=== PATIENT | male | born 1950 | race Caucasian/White ===

== ENCOUNTER 2016-08-28 18:16 | Observation (INO) | payer MEDICARE, OTHER ==
[2016-08-28] MEDS ORDERED: ASPIRIN TABLET 325 MG TAB PO ONE (18:36)
[2016-08-28] MEDS ORDERED: SODIUM CHLORIDE 0.9% (FLUSH) 10 ML SYG IV PRN (18:36)
[2016-08-28] MEDS: NITROGLYCERIN 0.4 MG 25 EA TAB SL ONE ×3 (18:39→20:00)
--- NOTE | 2016-08-28 18:54 | ED.PDOC ---
History of Present Illness - General Source: patient, family Exam Limitations: clinical condition Additional Information: PT REPORTS TO THE ED WITH COMPLAINT OF MID STERNAL NON RADIATING CHEST PAIN DESCRIBED PRESSURE THAT BEGAN THIS MORNING AND HAS BEEN CONSTANT. AT BEDSIDE STATES THAT PT HAS HAD A PRODUCTIVE COUGH FOR THE PAST FEW DAYS BUT DENIES FEVER. PT IS A 1.5PACK PER DAY SMOKER AND USES O2 AT HOME WHEN NEEDED. PT REPORTS DOING A FEW NEB TREATMENTS TODAY BUT STATES HE DID NOT USE HIS OXYGEN AND WAS ABLE TO SMOKE TODAY. PT RATES PAIN AT 6/10. - History of Present Illness Timing/Duration: 24 hours Severity/Quality: moderate, pressure Location: substernal Chest Pain Radiation: no radiation Activities at Onset: none Prior Chest Pain/Cardiac Workup: no prior chest pain Improving Factors: nothing Worsening Factors: nothing Nitro Today/Relief: no nitro taken today Aspirin Treatment Today: 81 mg x 1 Associated Symptoms: shortness of breath - COUGH <Mayela Prieto - Last Filed: 08/28/16 18:58> <Jazlyn Sy - Last Filed: 08/28/16 23:41> - General Chief Complaint: Chest Pain/CO Stated Complaint: chest pain Time Seen by Provider: 08/28/16 18:36 - History of Present Illness Allergies/Adverse Reactions: Allergies NO KNOWN ALLERGY Allergy (Verified 05/27/16 17:03) Home Medications: Ambulatory Orders Gabapentin 300 mg PO TID 01/28/14 Omeprazole 40 mg PO BID 01/28/14 Losartan Potassium 50 mg PO DAILY #20 tab 05/27/16 Albuterol Sulfate [Proair Hfa] 108 mcg IN Q4H PRN 05/30/16 Azithromycin Tab [Zithromax Tab] 250 mg PO Q24H #4 tab 05/30/16 Folic Acid 1 mg PO DAILY 05/30/16 Ipratropium-Albuterol [Combivent Respimat 20-100 Mcg/Act] 1 aer IN Q4HR PRN 10/10 Ipratropium/Albuterol [Duoneb] 3 ml NEB QID 05/30/16 Sucralfate Tab [Carafate Tab] 1 gm PO ACHS #40 tab 05/30/16 amLODIPine BESYLATE [Norvasc] 5 mg PO BEDTIME 05/30/16 predniSONE [Prednisone] 10 mg PO DAILY #12 tab 05/30/16 Review of Systems - Review of Systems Constitutional: Denies: chills, fever EENTM: Denies: nose congestion, throat pain Respiratory: States: see HPI, cough, short of breath Cardiology: States: see HPI, chest pain. Denies: palpitations Gastrointestinal/Abdominal: Denies: abdominal pain, diarrhea, vomiting Musculoskeletal: Denies: back pain, joint pain Skin: Denies: change in color, rash Neurological: States: no symptoms reported Endocrine: States: no symptoms reported Hematologic/Lymphatic: States: no symptoms reported <ConnerRadhaluca Gideon - Last Filed: 08/28/16 18:58> Past Medical History (General) - Patient Medical History Hx Seizures: No Hx Stroke: No Hx Dementia: No Hx Asthma: No Hx of COPD: Yes Hx Cardiac Disorders: No Hx Congestive Heart Failure: No Hx Pacemaker: No Hx Hypertension: Yes Hx Thyroid Disease: No Hx Diabetes: No Hx Gastroesophageal Reflux: No Hx Renal Disease: No Hx Cancer: No Hx of HIV: No Hx Hepatitis C: No Hx MRSA: No Surgical History: no surgical history - Vaccination History Hx Tetanus, Diphtheria Vaccination: Yes Hx Influenza Vaccination: Yes Hx Pneumococcal Vaccination: Yes - Social History Hx Tobacco Use: Yes Hx Chewing Tobacco Use: No Hx Alcohol Use: Yes Hx Substance Use: No Hx Substance Use Treatment: No Hx Depression: No Hx Physical Abuse: No Hx Emotional Abuse: No Hx Suspected Abuse: No - Female History Patient : No <ConnerMayela - Last Filed: 08/28/16 18:58> Family Medical History - Family History Mother Age (years): 84 Living Status: Still Living Hx Family;Other: in and out on SNF Father Living Status: Age at (years of age): 87 Hx Family;Other: depression/suicide <ConnerZackarykristal Gideon - Last Filed: 08/28/16 18:58> Physical Exam - Physical Exam General Appearance: Alert, Obvious distress Eyes, Ears, Nose, Throat Exam: normal ENT inspection Respiratory: chest non-tender, lungs clear, decreased breath sounds Cardiovascular/Chest: no murmur, tachycardia Gastrointestinal/Abdominal: non tender, soft Extremity: normal range of motion, non-tender Neurologic: normal mood/affect, oriented x 3 Skin Exam: normal color, warm/dry <ConnerZackarykristal Gideon - Last Filed: 08/28/16 18:58> Progress - EKG/XRAY/CT EKG: Sinus, Tachy, Unchanged from - 05/27/16 Comments: @130BPM, NL INTERVALS, NL AXIS <Mayela Prieto - Last Filed: 08/28/16 18:58> - Progress Progress: 08/28/16 23:34 Patient continued having epigastric pain off and on throughout his ED stay. The pain was relieved with a GI cocktail, however it would return any time he had a coughing fit. His continued having tachycardia, however Metoprolol 5 mg was given and he heart rate and blood pressure normalized. He continued to have coughing spells--productive with clear sputum. It was decided to observe Patient. - Results/Orders Results/Orders: 08/28/16 08/28/16 08/28/16 18:31 18:36 19:31 Temperature 97.1 F L Pulse Rate Pulse Rate [ 140 H 119 H Right Brachial] Respiratory 24 24 22 Rate Blood Pressure 154/66 147/93 [Right Arm] O2 Sat by Pulse 96 92 L Oximetry 08/28/16 08/28/16 08/28/16 20:31 21:26 21:28 Temperature Pulse Rate Pulse Rate [ 148 H 149 H Right Brachial] Respiratory 22 22 Rate Blood Pressure 156/101 130/100 [Right Arm] O2 Sat by Pulse 92 L 91 L 90 L Oximetry 08/28/16 08/28/16 08/28/16 21:29 22:30 23:15 Temperature 97.8 F Pulse Rate 131 H 131 H 98 H Pulse Rate [ 126 H 98 H Right Brachial] Respiratory 24 22 22 Rate Blood Pressure 148/86 136/84 [Right Arm] O2 Sat by Pulse 94 L 94 L 91 L Oximetry 08/28/16 18:36 Telemetry .ONCE Sodium Chloride 0.9% (Flush) [Saline Flush Syringe] 10 ml IV PRN PRN EKG Stat Pulse Ox Stat 08/28/16 21:07 SVN/Updraft Therapy .PRN 08/28/16 21:20 Hold Metformin x 48Hrs [id number] Laboratory Results WBC 4.4 K/mm3 (4.8-10.8) L 08/28/16 18:25 RBC 5.88 M/mm3 (4.70-6.10) 08/28/16 18:25 Hgb 19.2 gm/dL (14.0-18.0) H 08/28/16 18:25 Hct 56.8 % (42.0-52.0) H 08/28/16 18:25 MCV 96.5 fl (80.0-94.0) H 08/28/16 18:25 MCH 32.6 pg (27.0-31.0) H 08/28/16 18:25 MCHC 33.8 g/dL (33.0-37.0) 08/28/16 18:25 RDW 17.0 % (11.5-14.5) H 08/28/16 18:25 Plt Count 140 K/mm3 (130-400) 08/28/16 18:25 MPV 8.2 fl (7.40-10.4) 08/28/16 18:25 Absolute Neuts (auto) 2.70 K/uL (1.8-6.8) 08/28/16 18:25 Absolute Lymphs (auto) 1.00 K/uL (1.0-3.4) 08/28/16 18:25 Absolute Monos (auto) 0.60 K/uL (0.2-0.8) 08/28/16 18:25 Absolute Eos (auto) 0.10 K/uL (0.0-0.4) 08/28/16 18:25 Absolute Basos (auto) 0.10 K/uL (0.0-0.1) 08/28/16 18:25 Neutrophils % 61.9 % (42.0-78.0) 08/28/16 18:25 Lymphocytes % 22.5 % (20.0-50.0) 08/28/16 18:25 Monocytes % 12.4 % (2.0-9.0) H 08/28/16 18:25 Eosinophils % 2.1 % (1.0-5.0) 08/28/16 18:25 Basophils % 1.1 % (0.0-2.0) 08/28/16 18:25 PT 10.6 SECONDS (9.4-12.5) 08/28/16 18:25 INR 0.940 08/28/16 18:25 PTT (SP) 32.0 SECONDS (25.1-36.5) 08/28/16 18:25 D-Dimer, Quantitative 276 ng/mL (0-230) H* 08/28/16 20:35 Sodium 128 mmol/L (135-145) L 08/28/16 21:00 Potassium 3.7 mmol/L (3.6-5.0) 08/28/16 21:00 Chloride 93 mmol/L (101-111) L 08/28/16 21:00 Carbon Dioxide 31 mmol/L (21-31) 08/28/16 21:00 Anion Gap 7.7 (12-18) L 08/28/16 21:00 BUN < 5 mg/dL (7-18) L 08/28/16 21:00 Creatinine 0.71 mg/dL (0.6-1.3) 08/28/16 21:00 BUN/Creatinine Ratio 7.0 (10-20) L 08/28/16 21:00 Random Glucose 115 mg/dL (70-105) H 08/28/16 21:00 Serum Osmolality 254.9 mOsm/L (275-295) L* 08/28/16 21:00 Calcium 8.6 mg/dL (8.4-10.2) 08/28/16 21:00 Magnesium 1.7 mg/dL (1.8-2.5) L 08/28/16 18:25 Total Bilirubin 0.9 mg/dL (0.2-1.0) 08/28/16 18:25 Direct Bilirubin 0.3 mg/dL (0-0.2) H 08/28/16 18:25 Indirect Bilirubin 0.6 mg/dL (0.2-0.8) 08/28/16 18:25 AST 39 IU/L (10-42) 08/28/16 18:25 ALT 21 IU/L (10-60) 08/28/16 18:25 Alkaline Phosphatase 126 IU/L (42-121) H 08/28/16 18:25 Creatine Kinase 42 IU/L (38-174) 08/28/16 18:25 CK-MB (CK-2) 2.8 ng/mL (0.0-4.4) 08/28/16 18:25 CK-MB (CK-2) % Not Reportable 08/28/16 18:25 Troponin I < 0.02 ng/mL (0.01-0.05) 08/28/16 18:25 B-Natriuretic Peptide 16.8 pg/ml (0-100) 08/28/16 18:25 Serum Total Protein 7.3 gm/dL (6.4-8.2) 08/28/16 18:25 Albumin 3.3 g/dl (3.2-5.5) 08/28/16 18:25 <Jazlyn Sy - Last Filed: 08/28/16 23:41> Departure <Mayela Prieto - Last Filed: 08/28/16 18:58> - Departure Time of Disposition: 23:41 <Jazlyn Sy - Last Filed: 08/28/16 23:41> - Departure Clinical Impression: COPD exacerbation, Tachycardia with hypertension, Polycythemia secondary to smoking, Hyponatremia Gastroesophageal reflux disease Qualifiers: Esophagitis presence: esophagitis presence not specified Qualifier Code: (K21.9 ) Gastro-esophageal reflux disease without esophagitis Disposition: Admit Patient Condition: Good Home Medications: Ambulatory Orders Gabapentin 300 mg PO TID 01/28/14 Omeprazole 40 mg PO BID 01/28/14 Losartan Potassium 50 mg PO DAILY #20 tab 05/27/16 Albuterol Sulfate [Proair Hfa] 108 mcg IN Q4H PRN 05/30/16 Azithromycin Tab [Zithromax Tab] 250 mg PO Q24H #4 tab 05/30/16 Folic Acid 1 mg PO DAILY 05/30/16 Ipratropium-Albuterol [Combivent Respimat 20-100 Mcg/Act] 1 aer IN Q4HR PRN 10/10 Ipratropium/Albuterol [Duoneb] 3 ml NEB QID 05/30/16 Sucralfate Tab [Carafate Tab] 1 gm PO ACHS #40 tab 05/30/16 amLODIPine BESYLATE [Norvasc] 5 mg PO BEDTIME 05/30/16 predniSONE [Prednisone] 10 mg PO DAILY #12 tab 05/30/16 Decision To Admit - Decistion To Admit Decision to Admit Reason: Admit from ER - Accepted by Dr. Tate Decision to Admit Date: 08/28/16 Decision to Admit Time: 23:32 <Jazlyn Sy - Last Filed: 08/28/16 23:41>
--- NOTE | 2016-08-28 19:38 | RAD ---
EXAM: Chest,1 View CLINICAL INDICATION: 65-year-old male with shortness of breath, intercostal chest pain and cough. COMPARISON: 05/30/2016. FINDINGS: Single view, AP portable chest was obtained. Stable cardiac and mediastinal silhouette. Heart size is normal. Tortuous atherosclerotic thoracic aorta.Lungs are clear without focal opacity, pneumothorax or pleural effusions. LEFT basilar linear hazy opacities may be secondary to subsegmental atelectasis, scarring. The visualized bones are within normal limits. IMPRESSION: No acute cardiopulmonary abnormalities. 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
[2016-08-28] MEDS ORDERED: LIDOCAINE VIS-MYLANTA 30 ML UD PO ONE (20:34)
[2016-08-28] MEDS ORDERED: IPRATROPIUM/ALBUTEROL 3 ML VIAL NEB ONE (21:07)
[2016-08-28] MEDS ORDERED: METOPROLOL TARTRATE INJ 5 MG/5 ML VIAL IV ONE (22:32)
[2016-08-28] MEDS ORDERED: methylPREDNISolone SODIUM SUC 125 MG/2 ML VIAL IV ONE (23:32)
[2016-08-28] MEDS ORDERED: BENZONATATE PERLES 100 MG CAP PO ONE (23:42)
[2016-08-29] MEDS ORDERED: SODIUM CHLORIDE 0.9% (FLUSH) 10 ML SYG IV PRN (00:05)
[2016-08-29] MEDS ORDERED: HYDROcodone 5MG/APAP 325MG 1 EA TAB PO PRN (00:10)
[2016-08-29] MEDS ORDERED: MAGNESIUM HYDROXIDE 30 ML UD PO PRN (00:10)
[2016-08-29] MEDS ORDERED: LEVALBUTEROL NEBS 1.25 MG/3 ML VIAL INH PRN (00:10)
[2016-08-29] MEDS ORDERED: FUROSEMIDE INJ 20 MG/2 ML VIAL IV ONE (00:17)
[2016-08-29] MEDS ORDERED: BENZONATATE PERLES 100 MG CAP PO PRN (00:20)
[2016-08-29] MEDS ORDERED: KCL 20 MEQ/NS 1,000 ML IVS PRN (00:23)
--- NOTE | 2016-08-29 00:27 | PCM.CORE ---
Physician DVT/VTE - 3-4 High Risk Treatments: Sequential Compression Device Pharmacological: Enoxaparin 40 mg SQ Daily
[2016-08-29] MEDS ORDERED: IV SET AND CAP CHANGE INJ INJ SCH (00:30)
[2016-08-29] MEDS ORDERED: ENOXAPARIN SODIUM 40 MG/0.4 ML SYG SUBCU SCH (00:30)
[2016-08-29] MEDS: IPRATROPIUM/ALBUTEROL 3 ML VIAL INH SCH ×2 (00:39→07:48)
[2016-08-29] MEDS: guaiFENesin ER TAB 600 MG TAB PO SCH ×2 (00:49→09:35)
[2016-08-29] MEDS: METOPROLOL TARTRATE 25 MG TAB PO SCH ×2 (00:49→08:11)
[2016-08-29] MEDS ORDERED: OMEPRAZOLE CAP 20 MG CAP PO SCH (06:30)
[2016-08-29 06:47] VITALS: BP 150/85; TEMP 97.8
[2016-08-29] MEDS ORDERED: SUCRALFATE 1 GM/10 ML 1 GM UD PO SCH (07:00)
[2016-08-29] MEDS ORDERED: SODIUM CHLORIDE 0.9% 10 ML VIAL IV PRN (07:36)
[2016-08-29] MEDS ORDERED: predniSONE 20 MG TAB PO SCH (09:00)
[2016-08-29] MEDS ORDERED: GABAPENTIN 300 MG CAP PO SCH (09:00)
[2016-08-29] MEDS ORDERED: FUROSEMIDE INJ 20 MG/2 ML VIAL IV SCH (09:00)
[2016-08-29] MEDS ORDERED: LOSARTAN POTASSIUM 25 MG TAB PO SCH (09:00)
[2016-08-29 10:17] VITALS: O2SAT 91
--- NOTE | 2016-08-29 10:21 | SSS ---
DATE OF ADMISSION: 08/28/16 DATE OF DISCHARGE: 08/29/16 DISCHARGE DIAGNOSIS: 1. Chronic obstructive pulmonary disease with an acute exacerbation requiring bronchodilators and pulmonary hygiene with a short course of corticosteroid administration initiated. 2. Significant hyponatremia with probable etiology of polydipsia with free water overload, treated with fluid restrictions, gentle loop diuresis. 3. Tachycardia, improved. 4. Hypertension. 5 Symptomatic gastroesophageal reflux disease with esophagitis. 6. Chest pain with no evidence of underlying ischemic coronary disease noted, yet probably symptomatic from clinically evident regurgitation with distal esophagitis. HISTORY OF PRESENT ILLNESS: This 65-year-old, white male was admitted to the hospital for overnight observation because of persistent ongoing shortness of breath, cough, chest pain especially in the epigastric and lower anterior chest region. Chest discomfort started earlier in the morning of the day of admission. On the initial Emergency Room evaluation, cardiac enzymes were within normal limits, but he was found to have a fairly significant tachycardia presentation and was observed overnight with serial EKGs to ensure no underlying ischemic coronary disease contributing to some of his symptoms. He also has significant regurgitation with food from his stomach regurgitating and being spit out of his mouth. No evidence of aspiration otherwise evident. He has had chronic emphysema which leaves him with significant exertional dyspnea. He refuses to have an ambulation study to check for the degree of desaturation , but this will be followed up in the clinic. He is a chronic smoker, encouraged to stop and he states he actually wishes to stop at this time and specific instructions, advice, and support is to continue in him achieving that goal. PAST MEDICAL HISTORY: 1. Emphysema. 2. Hypertension. 3. Peripheral neuropathy, symptomatic. 4. Gastroesophageal reflux disease. PAST SURGICAL HISTORY: None. CURRENT MEDICATIONS: Please referring to nursing list of verified medications. ALLERGIES: NONE KNOWN. FAMILY HISTORY: Positive for hypertension, diabetes, skin cancer. SOCIAL HISTORY: The patient has worked in the [employer]. He has a significant history of smoking with over 70+ pack year history of smoking and still smoking though at a much lower rate now with his increasing respiratory distress. REVIEW OF SYSTEMS: GENERAL: Weight has been stable. No fever or chills. HEENT: No hearing or visual disturbances. LUNGS: Significant shortness of breath especially upon exertion with coughing, no hemoptysis. Secretions are not a significant problem. CARDIOVASCULAR: Chest discomfort, especially in the epigastric and lower substernal region with burning sensation. No significant palpitations, but rapid pulse is evident. GASTROINTESTINAL: Appetite has been decreased recently and he seems to be losing some of his muscle mass. No blood in the stools noted. GENITOURINARY: No dysuria. EXTREMITIES: Good range of motion. NEUROLOGIC: No headaches or focal weakness. PHYSICAL EXAMINATION: VITAL SIGNS: Afebrile. Initial pulse was 149, decreasing with the use of a beta blockade into the 80s and 90s. Blood pressure 144/84. Pulse oximetry 88% on room air and was up to 92% on room air at the time he was leaving. Weight 67 kg. GENERAL: The patient is fairly alert, though noticeably anxious. During his hospital stay, he was cooperative except some studies he would prefer not to do. He was very anxious and insistent upon being discharged early on the morning of discharge, even before some of the results of the studies had been fully received. Family is present. HEENT: Unremarkable. LUNGS: Diminished breath sounds with a few rhonchi, more prominent on the left versus the right base. CARDIOVASCULAR: Heart tones are somewhat distant and seem to be slower as the beta blockade has assisted. ABDOMEN: Generally soft with no organomegaly, masses, but he does have some mild epigastric tenderness upon palpation. EXTREMITIES: Somewhat diminished muscle tone. Encouraged to increase activity level. NEUROLOGIC: No focal weakness. The patient is otherwise awake, alert and oriented. LABORATORY: White count 4,400, hemoglobin elevated at 19.2 with hematocrit 56.8 , suggesting a polycythemia, probably secondary to chronic smoking which would probably present even at a more concentrated level if he does not have also clinical evidence of polydipsia with resultant low specific gravity. INR 0.94, D-dimer 276. Chemistries show sodium 128 up to 129 at discharge. Potassium up to 4.1, BUN under 5, creatinine 0.6, glucose 130, serum osmolality up from 153 to 158 at time of discharge. This resulted from fluid restrictions and gentle diuresis with a loop diuretic. Cardiac enzymes were followed. Troponin was 0. TSH 1. Urinalysis generally clean. Sputum culture is pending. Chest CTA was performed and showed no evidence of pulmonary emboli, but chronic obstructive pulmonary disease was evident. HOSPITAL COURSE: The patient was feeling much improved on the morning of discharge. Pulse was slower and he was able to ambulate with improved fashion. Still will require special antireflux instructions and again encouraged to stop all smoking. He will have close followup in the clinic. PLAN: The patient is discharged home today with followup with Dr. Dutton in one week. Dr. Dutton will be helpful in repeating laboratory studies to follow the polycythemia as well as the hyponatremia. To drink adequate fluids, yet avoid too much, and to keep oral intake under 1800 mL per 24 hours. Sleep with the head of the bed slightly elevated. Try to go to bed on an empty stomach. Try Carafate to coat the esophagus. Stop all smoking most important. When traveling, take a copy of the EKG miniaturized in his billfold if medical attention is needed. Return if not improving. #[id number] [facility] CENTERAri
--- NOTE | 2016-09-22 23:50 | RAD ---
EXAM: Chest,1 View CLINICAL INDICATION: 65-year-old male with shortness of breath, intercostal chest pain and cough. COMPARISON: 05/30/2016. FINDINGS: Single view, AP portable chest was obtained. Stable cardiac and mediastinal silhouette. Heart size is normal. Tortuous atherosclerotic thoracic aorta.Lungs are clear without focal opacity, pneumothorax or pleural effusions. LEFT basilar linear hazy opacities may be secondary to subsegmental atelectasis, scarring. The visualized bones are within normal limits. IMPRESSION: No acute cardiopulmonary abnormalities. 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
--- NOTE | 2016-09-23 07:31 | CT ---
NAME: TAVO KIMPROCEDURE: CT CHEST ANGIOGRAPHY WITH IV CONTRASTORDER DATE: 08/28/2016 9:19 PM CSTACCESSION NUMBER: [id number] Clinical History: Cough/SOB/tachy Indication: Same as above Comparison: None Technique: CT of the chest was done with intravenous contrast followed by CT angiography of the pulmonary arteries. Coronal, Sagittal and 3D volumetric MIP reconstructions were generated from the acquired data. The patient was injected with contrast intravenously, without any documented immediate adverse reactions. Total DLP: 547.86 mGy*cm. Findings: There is no visualization of filling defects in the main pulmonary trunk, main right and left pulmonary arteries or their lower order branches to suggest pulmonary embolism. The bilateral main pulmonary arteries are normal in caliber. There is no evidence of interventricular septal deviation or filling defects in the cardiac chambers. There are no pneumothoraces or pleural effusions. There are underlying changes of COPD and presence of mild infiltrates/atelectasis/parenchymal scarring in the left lower lobe and the costophrenic recess The trachea, bilateral mainstem bronchi and the bilateral main segmental bronchi are patent without any intraluminal mass lesions. There is no gross evidence of clinically significant thoracic aortic aneurysm or thoracic aortic dissection. Atherosclerotic calcifications are noted in the thoracic aorta There is no clinically significant pericardial effusion. There are no pathologically enlarged lymph nodes in the mediastinum, bilateral hilar, bilateral supraclavicular or the bilateral axillary regions. The thoracic bony rib cage appears grossly unremarkable. The visualized thoracic spine shows underlying degenerative change. There is presence of a punctate nonobstructive calculus in the visualized upper pole of the left kidney and fatty metamorphosis of the liver. There is a small hiatal hernia Impression: There is no pulmonary embolism. There are underlying changes of COPD and presence of mild infiltrates/atelectasis/parenchymal scarring in the left lower lobe and the costophrenic recess There is presence of a punctate nonobstructive calculus in the visualized upper pole of the left kidney and fatty metamorphosis of the liver. There is a small hiatal hernia Location of Interpretation: Teleradiology Electronically signed by: Tigre Dewey MD 08/28/2016 10:07 PM DIRECT RESPONSE CONSULTANT
== END 2016-08-29 09:45 | disposition home or self-care (01) ==
LOC: ER 18:16 → MS 23:42
PROVIDERS: ADMIT Emergency Medicine; ATTEND Emergency Medicine
DX: J44.1 Chronic obstructive pulmonary disease with (acute) exacerbation (principal); R06.02 Shortness of breath; E87.1 Hypo-osmolality and hyponatremia; R00.0 Tachycardia, unspecified; I10 Essential (primary) hypertension; K21.0 Gastro-esophageal reflux disease with esophagitis; R07.89 Other chest pain; G62.9 Polyneuropathy, unspecified; F17.210 Nicotine dependence, cigarettes, uncomplicated; Z79.51 Long term (current) use of inhaled steroids; Z79.899 Other long term (current) drug therapy; Z82.49 Family history of ischemic heart disease and other diseases of the circulatory system; Z83.3 Family history of diabetes mellitus; Z80.8 Family history of malignant neoplasm of other organs or systems
CPT/HCPCS: 36415 ×3; 71010; 71275; 80048 ×3; 80076; 81001; 82550 ×2; 82553 ×2; 83880; 84443; 84484 ×2; 85025; 85379; 85610; 85730; 87070; 87077; 87186; 93005 ×2; 94640 ×3; 94760 ×3; 96372; 96374; 96375 ×2; 99284; 99406; G0378; J1650; J1940; J2930; J3480; J7512; J7620 ×3

== ENCOUNTER → 2016-09-06 | Outpatient (CLI) | payer MEDICARE, OTHER | END | disposition home or self-care (01) | LOC: GMAM 14:06 | PROVIDERS: ATTEND Family Medicine | DX: R10.13 Epigastric pain (principal); E87.1 Hypo-osmolality and hyponatremia ==

== ENCOUNTER → 2016-09-09 | Outpatient (CLI) | payer MEDICARE, OTHER ==
--- NOTE | 2016-09-09 12:35 | US ---
EXAM DESCRIPTION: Gallbladder ultrasound. CLINICAL HISTORY: Acute onset of epigastric abdominal pain COMPARISON: None. TECHNIQUE: Transabdominal sonography was performed by an cardiac cath lab radiology technologist. FINDINGS: Liver: Echogenicity suggests fatty infiltration and/or chronic hepatocellular disease. Biliary: Several gallstones are present. There is no gallbladder wall thickening or sonographic Saleh sign to suggest acute cholecystitis. There is no biliary duct dilation. Mid common bile duct measures 6 mm in diameter. IMPRESSION The findings above are compatible with cholelithiasis, but no cholecystitis with a negative sonographic Saleh's sign. Echogenic liver which can be seen in setting of hepatocellular disease or fatty infiltration of the liver. Electronically signed by: Fredo Howell MD 09/09/2016 12:33
== END | disposition home or self-care (01) ==
LOC: US 10:46
PROVIDERS: ATTEND Family Medicine
DX: R10.13 Epigastric pain (principal)

== ENCOUNTER → 2016-09-23 | Outpatient (CLI) | payer MEDICARE, OTHER | END | disposition home or self-care (01) | LOC: GMAM 14:12 | PROVIDERS: ATTEND Family Medicine | DX: J44.9 Chronic obstructive pulmonary disease, unspecified (principal); E83.42 Hypomagnesemia ==

== ENCOUNTER → 2016-09-24 | Outpatient (CLI) | payer MEDICARE, OTHER | LOC: GMAM 18:10 | PROVIDERS: ATTEND Family Medicine | DX: R19.7 Diarrhea, unspecified (principal) ==

== ENCOUNTER → 2016-10-02 | Outpatient (CLI) | payer MEDICARE, OTHER | END | disposition home or self-care (01) | LOC: GMAM 14:25 | PROVIDERS: ATTEND Family Medicine | DX: E87.1 Hypo-osmolality and hyponatremia (principal) ==

== ENCOUNTER 2016-12-11 19:46 | Emergency (ER) | payer MEDICARE ==
[2016-12-11] MEDS ORDERED: LIDOCAINE VIS-MYLANTA 30 ML UD PO ONE (20:44)
[2016-12-11] MEDS ORDERED: KCL 40 MEQ/WATER FOR INJECTION 40 MEQ in PREMIX BAG 1 BAG IVPB ONE (20:45)
[2016-12-11] MEDS ORDERED: NITROGLYCERIN 2% 1 GM UD TOP ONE (20:45)
--- NOTE | 2016-12-11 20:52 | RAD ---
EXAM DESCRIPTION: Chest,2 Views CLINICAL HISTORY: 66 years Male chest pain COMPARISON: 08/28/2016. FINDINGS: The cardiomediastinal silhouette appears unremarkable. Atherosclerotic calcifications in the thoracic aorta. Hyperexpanded lungs. Mild scarring/atelectasis at the left lung base which appears improved in comparison to the previous study. No consolidating infiltrates or pleural effusions. No pneumothorax. IMPRESSION: No acute abnormality is identified. COPD. Electronically signed by: Zacarias Clark MD 12/11/2016 8:52 PM CDT
[2016-12-11] MEDS ORDERED: KCL 40 MEQ/WATER FOR INJECTION 100 ML IVPB ONE (20:54)
[2016-12-11] MEDS ORDERED: SODIUM CHLORIDE 0.9% 100ML 0 ML IVPB ONE (21:21)
--- NOTE | 2016-12-11 21:49 | ED.PDOC ---
History of Present Illness - General Chief Complaint: GI Problem Stated Complaint: throat pain and epigastric heart burn Time Seen by Provider: 12/11/16 20:04 Source: patient Exam Limitations: no limitations - History of Present Illness Initial Comments: Patient presents with midsternal pain for most of the day. He says it is constant, cramping, and non-radiating. He has had similar episodes before. He is currently being treated with diflucan for candidial esophagitis and omeprazole for GERD. NO cardiac history. Smokes tobacco and has dyslipidemia. Denies first degree family members with cardiac issues. Denies hx of bipedal edema, Denies hx of DM. Onset of pain was rapid. It is worsened by swallowing. No other complaints. Timing/Duration: other - 10 hours Severity: moderate Improving Factors: nothing Worsening Factors: eating Associated Symptoms: denies symptoms Allergies/Adverse Reactions: Allergies NO KNOWN ALLERGY Allergy (Verified 12/11/16 19:59) Home Medications: Ambulatory Orders Gabapentin 300 mg PO TID 01/28/14 Omeprazole 40 mg PO BID 01/28/14 Losartan Potassium 50 mg PO DAILY #20 tab 05/27/16 Albuterol Sulfate [Proair Hfa] 108 mcg IN Q4H PRN 05/30/16 Folic Acid 1 mg PO DAILY 05/30/16 Ipratropium-Albuterol [Combivent Respimat 20-100 Mcg/Act] 1 aer IN Q4HR PRN 10/10 Ipratropium/Albuterol [Duoneb] 3 ml NEB QID 05/30/16 amLODIPine BESYLATE [Norvasc] 5 mg PO BEDTIME 05/30/16 Metoprolol Succinate [Metoprolol Succinate ER] 50 mg PO QAM #30 tab 08/29/16 Sucralfate Tab [Carafate Tab] 1 gm PO ACHS #100 tab 08/29/16 predniSONE 10 mg PO DAILY #12 tab 08/29/16 Fluconazole [Diflucan] 50 mg PO BID 12/11/16 Review of Systems - Review of Systems Constitutional: States: no symptoms reported EENTM: States: no symptoms reported Respiratory: States: no symptoms reported Cardiology: States: no symptoms reported Gastrointestinal/Abdominal: States: see HPI Genitourinary: States: no symptoms reported Musculoskeletal: States: no symptoms reported Skin: States: no symptoms reported Neurological: States: no symptoms reported Endocrine: States: no symptoms reported Hematologic/Lymphatic: States: no symptoms reported Past Medical History (General) - Patient Medical History Hx Seizures: No Hx Stroke: No Hx Dementia: No Hx Asthma: No Hx of COPD: Yes Hx Cardiac Disorders: No Hx Congestive Heart Failure: No Hx Pacemaker: No Hx Hypertension: Yes Hx Thyroid Disease: No Hx Diabetes: No Hx Gastroesophageal Reflux: Yes - currently has yeast infection in throat Hx Renal Disease: No Hx Cancer: No Hx of HIV: No Hx Hepatitis C: No Hx MRSA: No Surgical History: other - Vaccination History Hx Tetanus, Diphtheria Vaccination: Yes - 2016 Hx Influenza Vaccination: Yes Hx Pneumococcal Vaccination: Yes - Social History Hx Tobacco Use: Yes Hx Chewing Tobacco Use: No Hx Alcohol Use: Yes - 2 beers at night Hx Substance Use: No Hx Substance Use Treatment: No Hx Depression: No Hx Physical Abuse: No Hx Emotional Abuse: No Hx Suspected Abuse: No - Female History Patient : No Family Medical History - Family History Mother Age (years): 84 Living Status: Still Living Hx Family;Other: in and out on SNF Father Living Status: Age at (years of age): 87 Hx Family;Other: depression/suicide Physical Exam - Physical Exam General Appearance: Alert Respiratory: lungs clear Cardiovascular/Chest: regular rate, rhythm Gastrointestinal/Abdominal: normal bowel sounds, non tender, soft Back Exam: no CVA tenderness Extremity: normal range of motion, non-tender, normal inspection, no pedal edema Neurologic: no motor/sensory deficits Skin Exam: normal color Lymphatic: no adenopathy Progress - Progress Progress: 12/11/16 21:49 Patient given a GI cocktail and nitrodur patch. His chest pain started to resolve significantly. His potassium was 2.8 so 40 meq IVPB was started. Troponin negative. EKG showed sinus tachycardia, no ST changes nor T wave inversions. No LBBB. 12/11/16 23:12 Patient's pain resolved and he was discharged to home with orders to follow up with his pcp. Departure - Departure Clinical Impression: Esophagitis, Esophageal spasm Disposition: Discharge to Home or Self Care Condition: Good Departure Forms: ED Discharge - Pt. Copy, Patient Portal Self Enrollment Diet: resume usual diet Activity: increase activity as tolerated Referrals: Vicente Dutton MD [Primary Care Provider] - 1-2 Weeks Home Medications: Ambulatory Orders Gabapentin 300 mg PO TID 01/28/14 Omeprazole 40 mg PO BID 01/28/14 Losartan Potassium 50 mg PO DAILY #20 tab 05/27/16 Albuterol Sulfate [Proair Hfa] 108 mcg IN Q4H PRN 05/30/16 Folic Acid 1 mg PO DAILY 05/30/16 Ipratropium-Albuterol [Combivent Respimat 20-100 Mcg/Act] 1 aer IN Q4HR PRN 10/10 Ipratropium/Albuterol [Duoneb] 3 ml NEB QID 05/30/16 amLODIPine BESYLATE [Norvasc] 5 mg PO BEDTIME 05/30/16 Metoprolol Succinate [Metoprolol Succinate ER] 50 mg PO QAM #30 tab 08/29/16 Sucralfate Tab [Carafate Tab] 1 gm PO ACHS #100 tab 08/29/16 predniSONE 10 mg PO DAILY #12 tab 08/29/16 Fluconazole [Diflucan] 50 mg PO BID 12/11/16 Additional Instructions: Follow up with your primary care doctor within one week.
[2016-12-11 22:59] VITALS: O2SAT 91
[2016-12-11] MEDS ORDERED: POTASSIUM CHLORIDE 20 MEQ TAB PO ONE (23:21)
[2016-12-11 23:43] VITALS: BP 132/71; TEMP 97.8
== END 2016-12-11 23:43 | disposition home or self-care (01) ==
LOC: ER 19:46
DX: K21.0 Gastro-esophageal reflux disease with esophagitis (principal); K22.4 Dyskinesia of esophagus; I10 Essential (primary) hypertension; R00.0 Tachycardia, unspecified; Z87.891 Personal history of nicotine dependence; J44.9 Chronic obstructive pulmonary disease, unspecified; Z79.899 Other long term (current) drug therapy
CPT/HCPCS: 36415; 71020; 80053; 82550; 82553; 84132; 84484; 85025; 93005; J3480

== ENCOUNTER 2017-01-27 17:46 | Emergency (ER) | payer MEDICARE ==
[2017-01-27] MEDS ORDERED: IPRATROPIUM/ALBUTEROL 3 ML VIAL NEB ONE ×3 (17:58→18:25)
[2017-01-27] MEDS ORDERED: METOPROLOL TARTRATE INJ 5 MG/5 ML VIAL IV ONE ×2 (17:59→18:05)
[2017-01-27] MEDS ORDERED: FUROSEMIDE INJ 40 MG/4 ML VIAL ONE (18:00)
[2017-01-27] MEDS ORDERED: FUROSEMIDE INJ 100 MG/10 ML VIAL IV ONE (18:05)
[2017-01-27 18:12] VITALS: TEMP 99
[2017-01-27] MEDS ORDERED: methylPREDNISolone SODIUM SUC 125 MG/2 ML VIAL IV ONE (18:12)
[2017-01-27] MEDS ORDERED: cefTRIAXone SODIUM 1 GM in SODIUM CHL 0.9% 50ML MIN-BAG+ 50 ML IVPB ONE (18:22)
[2017-01-27] MEDS ORDERED: AZITHROMYCIN 250 MG TAB PO ONE (18:22)
--- NOTE | 2017-01-27 18:25 | RAD ---
EXAM: Chest,1 View CLINICAL INDICATION: 66-year-old male with shortness of breath. TECHNIQUE: Single view, AP portable chest was obtained. COMPARISON: 12/11/2016. FINDINGS: Stable cardiac and mediastinal silhouette. Heart size is normal. Tortuous atherosclerotic thoracic aorta. Patchy opacification of the LEFT hemithorax compatible with consolidation and acute infectious process/pneumonia. Associated small to moderate-sized pleural effusion. Patchy opacification of the LEFT lower lobe may be secondary to consolidation/pneumonia and/or aspirate. No gross pneumothoraces. The visualized bones are within normal limits. IMPRESSION: Opacification of the RIGHT greater than LEFT lower lobes concerning for pneumonia. Please correlate with patient clinical findings and follow-up for resolution. Electronically signed by: Keerthi Lopez MD 01/27/2017 6:24 PM CDT Workstation: [id number]
[2017-01-27] MEDS ORDERED: cefTRIAXone SODIUM 1 GM VIAL ONE (18:37)
[2017-01-27] MEDS ORDERED: SODIUM CHL 0.9% 50ML MIN-BAG+ 50 ML IVPB ONE (18:37)
[2017-01-27] MEDS ORDERED: SOD CHL 3% *HYPERTONIC* 500ML 120 ML IVS ONE (18:54)
[2017-01-27] MEDS ORDERED: diltiaZEM DRIP 125 MG in SODIUM CHLORIDE 0.9% 100ML 100 ML IVPB SCH (20:00)
[2017-01-27] MEDS ORDERED: diltiaZEM DRIP 125 MG/25 ML VIAL IVPB ONE (20:16)
[2017-01-27] MEDS ORDERED: SODIUM CHLORIDE 0.9% 100ML 100 ML IVPB ONE (20:16)
[2017-01-27] MEDS ORDERED: MAGNESIUM SULFATE PREMIX 2GM 2 GM in PREMIX BAG 1 BAG IVPB ONE (21:02)
[2017-01-27] MEDS ORDERED: HYDROmorphone HCL INJ 2 MG/ML VIAL IV ONE (21:07)
[2017-01-27] MEDS ORDERED: MAGNESIUM SULFATE PREMIX 2GM 50 ML IVPB ONE (21:12)
--- NOTE | 2017-01-27 22:09 | ED.PDOC ---
History of Present Illness - General Chief Complaint: Respiratory Problem Stated Complaint: shortness of breath x several days Time Seen by Provider: 01/27/17 17:54 Source: patient, family Exam Limitations: clinical condition - History of Present Illness Initial Comments: the patient is a 66-year-old male with a long-standing history of COPD. The patient is being brought in by his secondary to a weeks worth of progressive symptoms becoming severe over the last 2 days. symptoms include cough, diaphoresis, chest pain with breathing, a few episodes of nausea and vomiting. Upon arrival here at the emergency room his oxygen saturations were legitimately down around 65%. The patient was in florid pulmonary edema. he was mildly altered. Coarse breath sounds were present bilaterally. He was in atrial fibrillation with rapid ventricular rate at a rate of 140-160 bpm. This is a new diagnosis for him. The patient does not normally wear any oxygen at home. He does have a history of some mild hyponatremia. The patient had significant accessory muscle use. Nasal flaring. Intercostal retractions. There is very little air movement initially before breathing treatments. Breathing treatments did help somewhat. The patient was started on BiPAP. Timing/Duration: 1 week Severity: severe Improving Factors: nothing Worsening Factors: movement Associated Symptoms: cough, diaphoresis, fever/chills, loss of appetite, malaise , nausea/vomiting, shortness of breath, weakness Allergies/Adverse Reactions: Allergies NO KNOWN ALLERGY Allergy (Verified 12/11/16 19:59) Home Medications: Ambulatory Orders Gabapentin 300 mg PO TID 01/28/14 Omeprazole 40 mg PO BID 01/28/14 Losartan Potassium 50 mg PO DAILY #20 tab 05/27/16 Albuterol Sulfate [Proair Hfa] 108 mcg IN Q4H PRN 05/30/16 Folic Acid 1 mg PO DAILY 05/30/16 Ipratropium-Albuterol [Combivent Respimat 20-100 Mcg/Act] 1 aer IN Q4HR PRN 10/10 Ipratropium/Albuterol [Duoneb] 3 ml NEB QID 05/30/16 amLODIPine BESYLATE [Norvasc] 5 mg PO BEDTIME 05/30/16 Metoprolol Succinate [Metoprolol Succinate ER] 50 mg PO QAM #30 tab 08/29/16 Sucralfate Tab [Carafate Tab] 1 gm PO ACHS #100 tab 08/29/16 predniSONE 10 mg PO DAILY #12 tab 08/29/16 Fluconazole [Diflucan] 50 mg PO BID 12/11/16 Review of Systems - Review of Systems Constitutional: States: chills, diaphoresis, fever, weakness EENTM: States: no symptoms reported Respiratory: States: cough, short of breath, wheezing Cardiology: States: chest pain - with breathing, edema - for the last 2 days, palpitations - just today Gastrointestinal/Abdominal: States: nausea, vomiting - few episodes Genitourinary: States: no symptoms reported Musculoskeletal: States: no symptoms reported Skin: States: other - diaphoretic on arrival Neurological: States: anxiety Endocrine: States: excessive sweating All other Systems: No Change from Baseline Past Medical History (General) - Patient Medical History Hx Seizures: No Hx Stroke: No Hx Dementia: No Hx Asthma: No Hx of COPD: Yes Hx Cardiac Disorders: Yes Hx Congestive Heart Failure: No Hx Pacemaker: No Hx Hypertension: Yes Hx Thyroid Disease: No Hx Diabetes: No Hx Gastroesophageal Reflux: No Hx Renal Disease: No Hx Cancer: No Hx of HIV: No Hx Hepatitis C: No Hx MRSA: No Surgical History: no surgical history - Vaccination History Hx Tetanus, Diphtheria Vaccination: Yes Hx Influenza Vaccination: Yes Hx Pneumococcal Vaccination: Yes Immunizations Up to Date: Yes - Social History Hx Tobacco Use: Yes Hx Chewing Tobacco Use: No Hx Alcohol Use: Yes Hx Substance Use: No Hx Substance Use Treatment: No Hx Depression: No Feels Threatened In Home Enviroment: No Feels Threatened In a Relationship: No Hx Physical Abuse: No Hx Emotional Abuse: No Hx Suspected Abuse: No - Female History Patient is a Female of Child Bearing Age (10 -59 yrs old): No Patient : No Family Medical History - Family History Mother Age (years): 84 Living Status: Still Living Hx Family;Other: in and out on SNF Father Family History: No Known Living Status: Age at (years of age): 87 Hx Family;Other: depression/suicide Physical Exam - Physical Exam General Appearance: Alert, Anxious, Obvious distress, Restless Eye Exam: bilateral normal Ears, Nose, Throat: hearing grossly normal, normal pharynx - mildly dry Neck: non-tender, full range of motion, supple Respiratory: respiratory distress, decreased breath sounds, accessory muscle use , crackles, rhonchi, wheezing Cardiovascular/Chest: tachycardia, irregularly irregular, other - +2 edema to bilateral lower extremities Peripheral Pulses: radial,right: 2+, radial,left: 2+, dorsalis pedis,right: 2+, dorsalis pedis,left: 2+ Gastrointestinal/Abdominal: non tender, soft Rectal Exam: deferred Back Exam: normal inspection, no CVA tenderness, no vertebral tenderness Extremity: normal range of motion, non-tender, no calf tenderness, normal capillary refill, pedal edema 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 Heart rate 140-160 and irregular. Systolic blood pressure of 135. Respiratory rate close to 40. Progress - Progress Progress: 01/27/17 22:14 the patient is a 66-year-old male presenting in acute respiratory distress with pulmonary edema and an underlying pneumonia along with atrial fibrillation and rapid ventricular rate as well as hyponatremia, hypochloremia and hypomagnesemia. he is also in a COPD exacerbation. the patient has received doses of Rocephin and azithromycin for the pneumonia. Blood cultures have been performed. The patient also received a dose of IV Solu-Medrol for the COPD exacerbation as well as several nebulizer treatments that did help his function. The patient also was placed on BiPAP for the pulmonary edema. He was able to be taken off of the BiPAP after about an hour and a half due to significant improvement in the lungs. He was also having a difficult time tolerating the BiPAP as he was becoming more back to his normal mental state. He has been able to keep his oxygen saturations between 88 and 94% with a nonrebreather since. he is breathing much more comfortably at this time compared to his arrival. The patient has received approximately 110 cc of 3% saline for the hyponatremia and hypochloremia. We are starting a magnesium drip. The patient failed to slow down or cardiovert with diltiazem or Lopressor. due to persistent pulmonary difficulties the decision was made to cardiovert the patient. The patient cardioverted with 70 J to a normal sinus rhythm. He is currently in a normal sinus rhythm at approximately 95-100 bpm. Blood pressures have remained adequate throughout his stay. The patient did receive 1 dose of IV Lasix initially. Since the ulmonary edema has resolved he may require that some of that fluid be given back. the patient will need to have his electrolytes rechecked upon arrival. for now we are continuing the diltiazem drip at 5. Transferred for higher level of care. Critical care time spent 75 minutes on not otherwise the procedures. Risks and benefits of cardioversion explained to and patient before it was performed. Respiratory was present. EMS was present. Cardioversion only required one attempt. 01/27/17 22:19 - Results/Orders Results/Orders: 01/27/17 18:05 Telemetry .CONTINUOUS atrial fibrillation with rapid ventricular rate 01/27/17 18:15 EKG STAT EKG shows atrial fibrillation with rapid ventricular rate. Slow R- wave progression in anterior leads. Difficult to interpret otherwise secondary motion. 01/27/17 18:40 BLOOD CULTURE Stat 01/27/17 20:00 diltiaZEM DRIP [Cardizem Drip] 125 mg Sodium Chloride 0.9% 100Ml [NS (NACL 0.9 %) 100ml] 100 ml IVPB PRN Laboratory Results - last 24 hr 01/27/17 01/27/17 01/27/17 16:00 16:00 16:00 WBC 28.2 H* RBC 5.01 Hgb 16.5 Hct 49.5 MCV 98.7 H MCH 32.9 H MCHC 33.4 RDW 14.7 H Plt Count 139 MPV 8.5 Absolute Neuts (auto) Not Reportable Absolute Lymphs (auto) Not Reportable Absolute Monos (auto) Not Reportable Absolute Eos (auto) Not Reportable Neutrophils % Not Reportable Neutrophils % (Manual) 80.0 Lymphocytes % Not Reportable Lymphocytes % (Manual) 8.0 Monocytes % Not Reportable Monocytes % (Manual) 8.0 Eosinophils % Not Reportable Basophils % Not Reportable Band Neutrophils 2.0 Eosinophils 2.0 PT 13.6 H INR 1.210 PTT (SP) 39.1 H D-Dimer, Quantitative 494 H* pCO2 pO2 HCO3 ABG pH ABG O2 Saturation ABG Base Excess ABG Deoxyhemoglobin Oxyhemoglobin % Carboxyhemoglobin % Methemoglobin % Sat Calc Total Hemoglobin Sodium 114 L* Potassium 4.8 Chloride 77 L* Carbon Dioxide 24 Anion Gap 17.8 BUN 14 Creatinine 0.50 L BUN/Creatinine Ratio 28.0 H Random Glucose 70 Serum Osmolality 228.1 L* Calcium 8.0 L Magnesium 1.5 L Total Bilirubin 1.6 H AST 51 H ALT 14 Alkaline Phosphatase 114 Creatine Kinase 491 H* CK-MB (CK-2) 16.3 H* CK-MB (CK-2) % 3.32 Troponin I 0.06 H B-Natriuretic Peptide 129.0 H Serum Total Protein 6.1 L Albumin 2.2 L Globulin 3.9 H Albumin/Globulin Ratio 0.6 L TSH 2.33 01/27/17 01/27/17 16:00 20:16 WBC RBC Hgb Hct MCV MCH MCHC RDW Plt Count MPV Absolute Neuts (auto) Absolute Lymphs (auto) Absolute Monos (auto) Absolute Eos (auto) Neutrophils % Neutrophils % (Manual) Lymphocytes % Lymphocytes % (Manual) Monocytes % Monocytes % (Manual) Eosinophils % Basophils % Band Neutrophils Eosinophils PT Cancelled INR Cancelled PTT (SP) D-Dimer, Quantitative pCO2 45 pO2 75 L HCO3 23.9 ABG pH 7.340 L ABG O2 Saturation 94.2 L ABG Base Excess -1.6 ABG Deoxyhemoglobin 5.7 H Oxyhemoglobin % 92.3 L Carboxyhemoglobin % 1.5 Methemoglobin % Sat 0.5 Calc Total Hemoglobin 15.4 Sodium Potassium Chloride Carbon Dioxide Anion Gap BUN Creatinine BUN/Creatinine Ratio Random Glucose Serum Osmolality Calcium Magnesium Total Bilirubin AST ALT Alkaline Phosphatase Creatine Kinase CK-MB (CK-2) CK-MB (CK-2) % Troponin I B-Natriuretic Peptide Serum Total Protein Albumin Globulin Albumin/Globulin Ratio TSH chest x-ray shows a large right-sided pneumonia. There is some evidence of fluid overload at the time of chest x-ray. Chest x-ray was performed after the patient had already started clearingfrom the pulmonary edema. Departure - Departure Clinical Impression: COPD exacerbation, Hyponatremia, Respiratory distress Pulmonary edema Qualifiers: Chronicity: acute Qualified Code(s): J81.0 - Acute pulmonary edema Pneumonia Qualifiers: Pneumonia type: due to unspecified organism Laterality: bilateral Lung location : lower lobe of lung Qualified Code(s): J16.8 - Pneumonia due to other specified infectious organisms Disposition: Transfer to Hospital Departure Forms: ED Discharge - Pt. Copy, Patient Portal Self Enrollment Referrals: Vicente Dutton MD [Primary Care Provider] - 1-2 Weeks Home Medications: Ambulatory Orders Gabapentin 300 mg PO TID 01/28/14 Omeprazole 40 mg PO BID 01/28/14 Losartan Potassium 50 mg PO DAILY #20 tab 05/27/16 Albuterol Sulfate [Proair Hfa] 108 mcg IN Q4H PRN 05/30/16 Folic Acid 1 mg PO DAILY 05/30/16 Ipratropium-Albuterol [Combivent Respimat 20-100 Mcg/Act] 1 aer IN Q4HR PRN 10/10 Ipratropium/Albuterol [Duoneb] 3 ml NEB QID 05/30/16 amLODIPine BESYLATE [Norvasc] 5 mg PO BEDTIME 05/30/16 Metoprolol Succinate [Metoprolol Succinate ER] 50 mg PO QAM #30 tab 08/29/16 Sucralfate Tab [Carafate Tab] 1 gm PO ACHS #100 tab 08/29/16 predniSONE 10 mg PO DAILY #12 tab 08/29/16 Fluconazole [Diflucan] 50 mg PO BID 12/11/16 Decision To Admit - Decistion To Admit Decision to Admit Reason: Medical Nature Decision to Admit Date: 01/27/17 Decision to Admit Time: 22:22
[2017-01-27 22:29] VITALS: BP 110/57; O2SAT 90
== END 2017-01-27 22:45 | disposition short-term general hospital (02) ==
LOC: ER 17:46
DX: J44.1 Chronic obstructive pulmonary disease with (acute) exacerbation (principal); J16.8 Pneumonia due to other specified infectious organisms; J81.0 Acute pulmonary edema; E87.1 Hypo-osmolality and hyponatremia; I10 Essential (primary) hypertension; Z87.891 Personal history of nicotine dependence; I48.91 Unspecified atrial fibrillation
CPT/HCPCS: 36415; 36600; 71010; 80053; 82550; 82553; 82803; 82805; 83735; 83880; 84443; 84484; 85025; 85379; 85610; 85730; 87040; 93005; 94640; 94660; J0696; J1170; J1940; J2060; J2930; J3475; J7050; J7620; J7799; Q0144